=== PATIENT | male | born 1955 | race Caucasian/White ===

== ENCOUNTER 2024-01-09 05:17 | Day surgery (SDC) | payer MEDICARE, OTHER ==
[2024-01-04 09:58] VITALS: BMI 28.2
[2024-01-09] MEDS ORDERED: LIDOCAINE HCL 1%, 10 MG/ML (20ML VIAL) ONE (13:52)
[2024-01-09] MEDS ORDERED: DEXTROSE 5%-0.45% SALINE 1,000 ML IV SCH (14:00)
[2024-01-09] MEDS ORDERED: IBUPROFEN 800 MG/8 ML IJ IVPB SCH (14:00)
[2024-01-09] MEDS ORDERED: MIDAZOLAM HCL 2 MG/2 ML SINGLE DOSE VIAL ONE (14:07)
[2024-01-09] MEDS ORDERED: FENTANYL CITRATE/PF 50 MCG/ML VIAL ONE (14:07)
[2024-01-09] MEDS ORDERED: PROPOFOL 20 ML ONE (14:11)
[2024-01-09] MEDS ORDERED: SUCCINYLCHOLINE CHLORIDE 200 MG/10 ML SYRINGE ONE (14:14)
[2024-01-09] MEDS ORDERED: ONDANSETRON 4 MG/2 ML VIAL IVPUSH PRN (14:52)
[2024-01-09] MEDS ORDERED: ACETAMINOPHEN INJECTION 100 ML IVPB ONE (15:24)
[2024-01-09] MEDS: ACETAMINOPHEN 1000 MG/100 ML BAG IVPB ONE (15:26)
[2024-01-09] MEDS: LACTATED RINGERS SOLUTION 1,000 ML IV SCH (16:00)
[2024-01-09] MEDS: oxyCODONE HCL 5 MG TABLET PO PRN (16:11)
[2024-01-09] MEDS ORDERED: oxyCODONE HCL 5 MG TABLET ONE (16:12)
[2024-01-09 16:20] VITALS: RESP 20; TEMP 97.8
[2024-01-09 16:46] VITALS: BP 112/55; PULSE 60
== END 2024-01-09 16:56 | disposition home or self-care (01) ==
LOC: JASU-SURG 05:17
PROVIDERS: ATTEND Urology
PROC: 0VB70ZZ Excision of Left Tunica Vaginalis, Open Approach (ICD-10-PCS; principal; 2024-01-09 13:00)
DX: N43.3 Hydrocele, unspecified (principal)
CPT/HCPCS: 82962; 88302-TC; 94760; J0131